=== PATIENT | female | born 1990 | race Caucasian/White ===

== ENCOUNTER 2018-12-25 08:43 | Inpatient (IN) | payer OTHER ==
[2018-12-25] MEDS: Lactated Ringer's 1,000 ML IV SCH (10:00)
[2018-12-25 10:03] VITALS: BMI 27.1
[2018-12-25 10:21] LABS: BASO % 0.4 % (0.0-2.0); EOS # 0.1 K/uL (0.0-0.7); EOS % 0.6 % (0.0-4.0); HEMOGLOBIN 7.6 g/dL (11.0-16.0); LYMPH # 1.8 K/uL (1.0-4.3); MEAN CELL VOLUME 68.5 fL (81.0-99.0); MEAN CORPUSCULAR HGB CONC 30.7 g/dL (33.0-37.0); MEAN PLATELET VOLUME 8.3 fL (7.2-11.7); MONO # 0.5 K/uL (0.0-0.8); MONO % 4.2 % (0.0-10.0); NEUT # 8.8 K/uL (1.8-7.0); NEUT % 78.8 % (50.0-75.0); NRBC % 0.1 % (0.0-2.0); RBC 3.64 Mil/uL (3.80-5.20); RED CELL DISTRIBUTION WIDTH 16.1 % (11.5-14.5); WHITE BLOOD COUNT 11.2 K/uL (4.8-10.8)
[2018-12-25 10:25] LABS: SQUAMOUS EPITHIAL 1 /hpf (0-5); URINE BACTERIA RARE (<OCC); URINE BILIRUBIN NEGATIVE (NEGATIVE); URINE CLARITY Clear (Clear); URINE COLOR Straw (YELLOW); URINE GLUCOSE (UA) NORMAL (Normal); URINE LEUKOCYTE ESTERASE 3+ Leu/uL (Negative); URINE PROTEIN NEGATIVE (NEGATIVE); URINE UROBILINOGEN NORMAL mg/dL (0.2-1.0)
[2018-12-25 10:26] LABS: URINE BLOOD 1+ (NEGATIVE)
[2018-12-25 10:34] LABS: ALB/GLOB RATIO 1.2 (1.0-2.1); ALBUMIN 3.4 g/dL (3.5-5.0); ALT/SGPT 16 U/L (9-52); AST/SGOT 35 U/L (14-36); BLOOD UREA NITROGEN 7 mg/dL (7-17); CALCIUM 8.7 mg/dl (8.6-10.4); GFR NON-AFRICAN AMERICAN > 60
[2018-12-25] MEDS ORDERED: Oxytocin 30 UNIT 30 UNITS/500 ML BAG IV SCH (11:45)
--- NOTE | 2018-12-25 13:43 | OBHP ---
Datetime: 12/25/2018 09:56 IP Adm Impression: Term, intrauterine IP Chief Complaint Other: LURDES 0 on BPP IP Admit Plan: Admit to unit Admit Comment, IP Provider: Patient is a 28 year old primagravid female at 40w0d by LMP of 03/20/18 an d MARYLOU 12/25/18 was sent in by her OB Dr. Angelic Flores for low LURDES on BPP. She started having contractions ar ound 8pm yesterday lasting less than a minute and about 30 minutes apart. They are still less than a minute long abuot 12-15 minutes apart. Her mucus plug dissolved _3days ago; she is still having VD fr om that. She denies ROM, VB, endorses +FM. Denies pain at this time. d Issues: - Anemia - beta thalassemia minor OB Hx: 1. Current [employer] Hx: LMP 03/20/18 [place]: 16 x regular x 4 days Last Pap was during first trimester Denies history or fibroids, cysts, HPV Allergies: NKDA Medications: PNV, Folate daily, Feosol po BID Medical Hx: Denies Surgical Hx: Denies Social Hx: Denies tobacco, alcohol, drug use Fam Hx: Denies, parents still alive PE: see above A/P: This is a 28 year old G1 @ 40 wks IOL for oligohydrmainos - Admit to unit - CEFM and TOCO - Admission labs: CBC, CMP, UA - LR @ 125 - TC for likely transfusion - Pitocin for augmentation - GBS neg, no antibiotics at this time - third trimester labs reviewed: RPR, Hep, GC/CH, Rubella, HIV neg - Anesthesia on consult for epidural if patient desires - anticipate vaginal delivery - plan discussed with Dr. Law pt seen and examiend rpeorat pain increasing intensety adn freuqency 2 min 7/10, deisre pian medic ation. Pt consented on possible blodo transfsion, r/b/a/i iol vs pltcs dw paietn pt reexamiend /-3 VTX plan pitocin IOL pain mangment type adn ramandeep Ba PGY-1 FHR - Baseline A Provider: 160 Comments, ACOG Physical Exam: Gen: NAD, AAOx3 HEENT: PERRLA, EOMI Cardio: RRR, +s1,+s2, no murmurs, gallops, rubs Resp: Normal breathing pattern, CTAB, no wheezing, rhonchi, rales GI: normal bowel sounds, soft, nontender abd, fundal height _39cm, : serous vaginal discharge present, no bleeding Ext: +5/5 muscle strength in the upper and lower ext b/l, pulses present (radial, PT) Nitrazine Provider: Negative IP Hx Assessment: The History has been Reviewed and is Current EGA AdmitDate IP: 40.0 IP Chief Complaint: Uterine contractions; Other NICHD Variability Prov Fetus A: Marked >25bpm NICHD Accel Fetus A IP Provider: 10X10 FHR Category Provider Fetus A: Category I NICHD Decel Fetus A IP Provider: Variable Dilatation, Provider: 1-2 Effacement, Provider: 50% Station, Provider: -3
[2018-12-25] MEDS ORDERED: Oxytocin 20 units in LR 0 ML IV ONE (13:52)
--- NOTE | 2018-12-25 14:00 | OBHP ---
Datetime: 12/25/2018 13:54 IP Adm Impression: Term, intrauterine IP Admit Plan: Admit to unit Admit Comment, IP Provider: pt seen adn examined, s/p d]elceration, and now rpeorting some lof, beatris r, no vb, +FM VS see above VE: /-3 VTX EFM: 160/mod rodolfo decerl down to 65pbpm x 2 min with spotnean recomver with decl down to 100bpm_ x 1min with spontaneous return tob aseline TOCO: q 5 min a/p @ 40 wks IOL for oligohydramions Now Cat I, hydration left latera, oxygen currently Cat I will dc pitcon if cat II pt cousle don r/b/a/i of continue IOL Vs PLTCS blood transfuion consent obtained pain magnetn Pelvic Type - PN: Adequate Extremities - PN: Normal Abdomen - PN: Normal Back - PN: Normal Breast - PN: Normal Lungs - PN: Normal Heart - PN: Normal Thyroid - PN: Normal Neurologic - PN: Normal HEENT - PN: Normal General - PN: Normal FHR - Baseline A Provider: 160 Contraction Comments Provider: 5 min Gestation - Est Wks by US: 40.0 IP Hx Assessment: The History has been Reviewed and is Current EGA AdmitDate IP: 40.0 Vital Signs Provider: Reviewed; Within Normal Limits IP Chief Complaint: Uterine contractions; Suspected ruptured membranes NICHD Variability Prov Fetus A: Moderate 6-25bpm Dilatation, Provider: 1 Effacement, Provider: 50 Station, Provider: -3 Genitourinary Exam: Normal DTRs - PN: Normal
[2018-12-25] MEDS ORDERED: cefOXitin IV 2 gm in Dextrose 2 GM/50 ML BAG IVPB ONE (16:14)
[2018-12-25] MEDS ORDERED: Lactated Ringer's 1,000 ML IV ONE (16:14)
[2018-12-25] MEDS ORDERED: Sodium Citrate/Citric Acid 15 ml Sol ONE ×2 (16:14→16:15)
[2018-12-25] MEDS ORDERED: Sodium Citrate/Citric Acid 15 ml Sol PO ONE (16:14)
[2018-12-25] MEDS ORDERED: Oxytocin 20 units in LR 2,000 ML IV ONE (16:16)
[2018-12-25] MEDS ORDERED: Morphine 1 mg/ml preservative-free Inj(Duramorph) ONE (17:10)
--- NOTE | 2018-12-25 17:11 | OBPN ---
Datetime: 12/25/2018 17:05 IP Informed Consent Obtain: Section Delivery Contraction Comments Provider: q 5min Vital Signs Provider: Reviewed Datetime: 12/25/2018 16:30 IP Progress Impression: Non-reassuring heart rate IP Procedures: Sterile Vag Exam IP Progress Plan: Induction FHR - Baseline A Provider: 150 Gestation - Est Wks by US: 40.0 Presentation-Admit: Vertex IP Progress Note Comment: Pt seen and examined, per Dr. Flores's request + Deep variables with recovery to baseline VA/Afebrile Admitted for IOL secondary to anhydramnios ? SROM NRFHT's Discussed with Dr. Flores and she is on her way to perform a C/S IV Hydration ordered and Anesthesia and OR aware NICHD Accel Fetus A IP Provider: 10X10 FHR Category Provider Fetus A: Category II NICHD Variability Prov Fetus A: Moderate 6-25bpm Dilatation, Provider: 2 Effacement, Provider: 70 Station, Provider: -3 NICHD Decel Fetus A IP Provider: Variable Datetime: 12/25/2018 09:56 Nitrazine Provider: Negative
[2018-12-25] MEDS ORDERED: Oxytocin 10 Units/ml Inj ONE (17:19)
--- NOTE | 2018-12-25 18:11 | OBDS ---
DELIVERY PERSONNEL Delivery Doctor: musa Metcalf Nurse: Audra Steiner [facility] Mortician: bonnie Anesthesiologist: khushbu Resident: dr menchaca MATERNAL INFORMATION Delivery Anesthesia: Spinal Provider Comments: live male ifnant cephailc presnetnatin, loose ncuhal x 1, agpasr 9,9 ebl 800ml, n ormal appearing uteurs, tubes and ovaries b/l pediatiricn presnt for delivery weight of 6lbs no cmplicaotns LABOR SUMMARY EDC: 12/25/2018 00:00 No. Babies in Womb: 1 LABOR INFORMATION Group B Beta Strep: Negative STAGES OF LABOR Stage 3 hrs: 0 Stage 3 min: 1 BABY A INFORMATION Delivery Date/Time: 12/25/2018 17:38 Method of Delivery: Born in Route : No : N/A Forceps: N/A Vacuum Extraction: N/A Shoulder Dystocia : No SHOULDER DYSTOCIA BABY A Delivery Date/Time: 12/25/2018 17:38 PRESENTATION/POSITION BABY A Presentation: Cephalic Cephalic Presentation: Vertex Vertex Position: Left Occipital Anterior Breech Presentation: N/A PLACENTA INFORMATION BABY A Placenta Delivery Time : 12/25/2018 17:39 Placenta Method of Delivery: Spontaneous Placenta Status: Delivered SCORES BABY A Heart Rate 1 min: >100 bpm Resp Effort 1 min: Good Cry Reflex Irritability 1 min: Cough or Sneeze or Pulls Away Muscle Tone 1 min: Active Motion Color 1 min: Body [place], Extremities Blue Resuscitation Effort 1 min: N/A SCORE 1 MIN: 9 Heart Rate 5 min: >100 bpm Resp Effort 5 min: Good Cry Reflex Irritability 5 min: Cough or Sneeze or Pulls Away Muscle Tone 5 min: Active Motion Color 5 min: Body [place], Extremities Blue Resuscitation Effort 5 min: N/A SCORE 5 MIN: 9 INFANT INFORMATION BABY A Gestational Age at Delivery: 40.0 Gestational Status: Term Infant Outcome : Liveborn Condition : Stable Sex: Male IDENTIFICATION/MEDS BABY A ID Band Number: [id number] ID Band Location: Right Leg; Right Arm Sensor Applied: Yes Sensor Number: [id number] Sensor Location : Cord Clamp Vitamin K Given : Not Given Erythromycin Given: Not Given WEIGHT/LENGTH BABY A Birthweight (gms): 2710 Weight (lb): 6 Weight (oz): 0 Length Inches: 20.00 Length cms: 50.8 CORD INFORMATION BABY A No. Cord Vessels: 3 Nuchal Cord : N/A Suction: Mouth; Nose
[2018-12-25] MEDS ORDERED: Oxycodone/Acetaminophen 5/325 mg Tab PO PRN (18:13)
[2018-12-25] MEDS: Simethicone 80 mg Chewtab PO SCH (22:00)
[2018-12-25 22:30] LABS: BASO # 0.1 K/uL (0.0-0.2); BASO % 0.4 % (0.0-2.0); EOS % 0.1 % (0.0-4.0); HEMOGLOBIN 8.1 g/dL (11.0-16.0); LYMPH # 1.2 K/uL (1.0-4.3); LYMPH % 7.6 % (20.0-40.0); MEAN CORPUSCULAR HEMOGLOBIN 22.8 pg (27.0-31.0); MEAN CORPUSCULAR HGB CONC 31.9 g/dL (33.0-37.0); MEAN PLATELET VOLUME 8.7 fL (7.2-11.7); MONO # 0.5 K/uL (0.0-0.8); MONO % 3.4 % (0.0-10.0); NEUT # 14.1 K/uL (1.8-7.0); NEUT % 88.5 % (50.0-75.0); NRBC % 0.1 % (0.0-2.0); PLATELET COUNT 255 K/uL (130-400); RBC 3.56 Mil/uL (3.80-5.20); RED CELL DISTRIBUTION WIDTH 20.4 % (11.5-14.5); WHITE BLOOD COUNT 15.9 K/uL (4.8-10.8)
[2018-12-25 22:41] LABS: MEAN CELL VOLUME 71.6 fL (81.0-99.0)
[2018-12-25 23:13] LABS: BANDS 8 % (0-2); LYMPHOCYTE 5 % (20-40); MONOCYTE 1 % (0-10); NEUTROPHIL 86 % (50-75); TOTAL CELLS COUNTED 100
[2018-12-25 23:14] LABS: ACANTHOCYTES SLIGHT; ANISOCYTOSIS SLIGHT; HYPOCHROMIC SLIGHT; MICROCYTOSIS SLIGHT; POIKILOCYTOSIS SLIGHT; TARGET CELLS SLIGHT; TEARDROP CELLS SLIGHT
[2018-12-25 23:15] LABS: PLATELET ESTIMATE NORMAL (NORMAL)
[2018-12-26] MEDS: Lactated Ringer's 1,000 ML IV SCH (03:55)
[2018-12-26 08:10] LABS: HEMOGLOBIN 7.9 g/dL (11.0-16.0); MEAN CELL VOLUME 71.7 fL (81.0-99.0); MEAN CORPUSCULAR HEMOGLOBIN 23.2 pg (27.0-31.0); MEAN CORPUSCULAR HGB CONC 32.3 g/dL (33.0-37.0); MEAN PLATELET VOLUME 8.8 fL (7.2-11.7); RBC 3.42 Mil/uL (3.80-5.20); RED CELL DISTRIBUTION WIDTH 20.3 % (11.5-14.5); WHITE BLOOD COUNT 15.3 K/uL (4.8-10.8)
[2018-12-26] MEDS: Prenatal Multivit/Folic Acid/Iron Tab PO SCH (09:54)
[2018-12-26] MEDS: Simethicone 80 mg Chewtab PO SCH ×4 (09:54→21:51)
--- NOTE | 2018-12-26 19:58 | OBPPN ---
Datetime: 12/26/2018 19:51 PP Pain Prov: Abnormal PP Nausea Prov: Denies PP Flatus Prov: Yes PP BM Prov: No PP Breasts Prov: Normal PP Heart Prov: Normal PP Lungs Prov: Normal PP Abdomen/Uterus Prov: Normal PP Lochia Prov: Normal PP Vulva/Perineum Prov: Normal PP CVA Tenderness Prov: Normal PP Extremities Prov: Normal PP C/S Incision Prov: Normal PP Progress Prov: Normal PP Impression Prov: Endometritis PP Plan Prov: Continue present management; Antibiotic therapy PP Progress Note Prov: pt seen adn examiend reports shivering starting early evening. pt rperots gisela n when walking to the bathroom oer hte incsion. pt deneis any fever, nause, ovmiting, cps, ob, bowel ro bladder compliatns VS SEe above PE: GEN: NAD, AAO x 3, appers tired RESP: Ctab/l CVS: RRR, +S1/S2 ABD: soft, TTP over uteurs, fundal tendnerss, no guaridng no reboudn tendners, no rgdity, +BS Incisin: C/D/I VE: minla lochai, no fuls smelling EXT; negative nancy's sign, a/p s/p PLTCS POD #1 with endoemetiris -antibiocs; triples -am cbc, cmp -regular diet -pain mangment -incenvie spiromter -abdominal binder -d/c vogel Vital Signs Provider PP: Reviewed
[2018-12-26] MEDS: AMPicillin 2 GM in Sodium Chloride 100 ML IVPB SCH (23:06)
[2018-12-27] MEDS: AMPicillin 2 GM in Sodium Chloride 100 ML IVPB SCH ×4 (03:46→22:44)
[2018-12-27 07:39] LABS: BASO % 0.3 % (0.0-2.0); EOS % 0.2 % (0.0-4.0); HEMOGLOBIN 6.8 g/dL (11.0-16.0); LYMPH # 1.2 K/uL (1.0-4.3); LYMPH % 10.4 % (20.0-40.0); MEAN CELL VOLUME 71.5 fL (81.0-99.0); MEAN CORPUSCULAR HEMOGLOBIN 23.6 pg (27.0-31.0); MEAN PLATELET VOLUME 7.9 fL (7.2-11.7); MONO # 0.6 K/uL (0.0-0.8); MONO % 4.8 % (0.0-10.0); NEUT # 9.9 K/uL (1.8-7.0); NEUT % 84.3 % (50.0-75.0); NRBC % 0.1 % (0.0-2.0); RBC 2.9 Mil/uL (3.80-5.20); RED CELL DISTRIBUTION WIDTH 19.7 % (11.5-14.5); WHITE BLOOD COUNT 11.8 K/uL (4.8-10.8)
[2018-12-27 08:04] LABS: ALB/GLOB RATIO 0.9 (1.0-2.1); ALBUMIN 2.5 g/dL (3.5-5.0); ALT/SGPT 21 U/L (9-52); AST/SGOT 41 U/L (14-36); BLOOD UREA NITROGEN 5 mg/dL (7-17); CALCIUM 7.9 mg/dl (8.6-10.4); GFR NON-AFRICAN AMERICAN > 60
--- NOTE | 2018-12-27 09:43 | OBPPN ---
Datetime: 12/27/2018 08:01 PP Pain Prov: Within normal limits PP Nausea Prov: Denies PP Flatus Prov: Yes PP BM Prov: Yes PP Breasts Prov: Normal PP Heart Prov: Normal PP Lungs Prov: Normal PP Abdomen/Uterus Prov: Normal PP Lochia Prov: Normal PP Vulva/Perineum Prov: Normal PP CVA Tenderness Prov: Normal PP Extremities Prov: Normal PP C/S Incision Prov: Normal PP Progress Prov: Normal PP Comments Phys Exam Prov: Gen: NAD, AAOx3 HEENT: EOMI, PERRLA Cardio: RRR, +s1, +s2, no murmurs, gallops, rubs Resp: normal breathing pattern, CTAB, no wheezing, rhonchi, rales Breat; non engorged b/l, on tender GI: guarding, tenderness to palpation in all 4 quadrants, fundal height 2 finger breath below the umbilicus, improved, no guarding, no reboud tndnere, no rigidity, +BS Ext: +5/5 muscle strength in the upper and lower extremities b/l PP Impression Prov: Normal progression; Endometritis; Pain PP Plan Prov: Continue present management; Antibiotic therapy PP Progress Note Prov: Patient was seen and examined today at bedside in no acute distress. She is n o longer shivering nor having chills. Patient tolerating regular diet. She's not having n/v and is fallon ving flatus and BM. Pt reprots pain is better contorlled then yesterday. Pt reprots feeling tired, de nis any cp, sob, dizzyness. She's ambulating in the room and using the incentive spirometer. pt rpero ts passign flatus. VS see above Pe see above A/P: s/p PLTCS POD #2 with endometritis -antibiotics; triples -am cbc, cmp -regular diet -pain management -incentive spirometer -abdominal binder -encourage ambulation Bernadette Ba PGY-1 agree with above pt seen adn exmined pain mangemnt repeat cbc hb <7 pt offered blodotranfsion, consent triple antibocs enoaurge ambaiton/breast feeding am labs IP PP Procedures: None Vital Signs Provider PP: Reviewed Vital Signs Provider Details PP: Tmax 99.3
[2018-12-27] MEDS: Simethicone 80 mg Chewtab PO SCH ×4 (10:04→21:25)
[2018-12-27] MEDS: Prenatal Multivit/Folic Acid/Iron Tab PO SCH (10:05)
[2018-12-27] MEDS: Oxycodone/Acetaminophen 5/325 mg Tab PO PRN (14:18)
[2018-12-27] MEDS ORDERED: Potassium Chloride 20 mEq ER Tab PO ONE ×2 (15:28→18:30)
[2018-12-27 16:48] VITALS: O2SAT 98
[2018-12-28] MEDS: Oxycodone/Acetaminophen 5/325 mg Tab PO PRN ×2 (00:22→09:37)
--- NOTE | 2018-12-28 01:47 | OP ---
PROCEDURE DATE: 12/25/2018 PREOPERATIVE DIAGNOSES: Anhydramnios, nonreassuring heart tracing, remote from delivery. POSTOPERATIVE DIAGNOSES: Anhydramnios, nonreassuring heart tracing, remote from delivery. PROCEDURE: Primary low transverse section. ANESTHESIA: Combined spinal epidural. ESTIMATED BLOOD LOSS: 800 mL. OPERATIVE FINDINGS: Live male , cephalic presentation. Apgars 9 and 9. Normal-appearing uterus, tubes, and ovaries bilaterally. Mold Parter present for the delivery. Dr. Mathew Cohn, surgical dental assistant, was present for the entire case, essential in gaining entry, retraction, exposure, helping to hold the bladder blade, closing all layers, and was present for the entire case. SPECIMEN SENT TO PATHOLOGY: Placenta. COMPLICATIONS: None. DESCRIPTION OF PROCEDURE: The patient was taken to the operating room where she was given anesthesia. Once it was found to be adequate, the patient was placed on the operating table in the dorsal supine position. The patient was then prepped and draped in the usual sterile fashion. A time-out confirmed correct patient and correct procedure. Bimanual exam was performed with the above-mentioned findings. Pfannenstiel skin incision was made with a scalpel, carried down to the underlying fascia with the Bovie. The fascia was incised in the midline and incision was extended laterally with the Bovie. Inferior aspect of the fascial incision was grasped with Allis and Luis clamps and the underlying rectus muscle was dissected off bluntly. Attention was then turned to the superior aspect, which in a similar fashion was grasped with Allis and Luis clamps, and the underlying rectus muscles were dissected off bluntly. The rectus muscles were then bluntly in the midline. The peritoneum was identified and entered in clear space. The incision was extended laterally and superiorly until there was good visualization of the bladder. The lower end of the [place] was then reinserted. The vesicouterine peritoneum was incised with Metzenbaum scissors. The bladder flap was created digitally. The lower uterine segment was incised in a transverse fashion. The uterine incision was extended laterally bluntly. Surgeon's hand entered the uterine cavity. The infant's head was delivered atraumatically followed by delivery of the shoulders, followed by delivery of the body. Both oral and nasal passages of the baby were bulb suctioned. The umbilical cord was clamped and cut. The baby was handed off to the awaiting level vial marker. Cord blood and cord gases were collected and sent x2. The placenta was then delivered manually. The uterus was exteriorized of all clots and debris. The uterus was then returned to the abdomen. Pericolic gutters were cleared of all clots and debris. There was good hemostasis noted at the uterine incision site. The peritoneum was reapproximated with a 2-0 chromic in a running continuous fashion. The rectus was reapproximated with 2-0 chromic in an interrupted manner. The fascia was reapproximated and closed with 0 Vicryl in a running continuous fashion. The subcutaneous space was closed with a 2-0 plain in an interrupted manner, and the skin was reapproximated with a 4-0 Monocryl in a running subcuticular fashion. At the end of the procedure, all needle, sponge and instrument counts were noted to be correct x2. The patient tolerated the procedure well and was transferred to the recovery room in stable condition. Tahmina Flores MD
[2018-12-28] MEDS: AMPicillin 2 GM in Sodium Chloride 100 ML IVPB SCH ×2 (04:12→09:17)
[2018-12-28 07:46] LABS: BASO % 0.4 % (0.0-2.0); EOS # 0.1 K/uL (0.0-0.7); EOS % 0.9 % (0.0-4.0); HEMOGLOBIN 8.5 g/dL (11.0-16.0); LYMPH # 1.5 K/uL (1.0-4.3); LYMPH % 14.2 % (20.0-40.0); MEAN CORPUSCULAR HEMOGLOBIN 24.2 pg (27.0-31.0); MEAN CORPUSCULAR HGB CONC 32.7 g/dL (33.0-37.0); MEAN PLATELET VOLUME 8.1 fL (7.2-11.7); MONO # 0.5 K/uL (0.0-0.8); MONO % 4.7 % (0.0-10.0); NEUT # 8.4 K/uL (1.8-7.0); NEUT % 79.8 % (50.0-75.0); NRBC % 0.2 % (0.0-2.0); RBC 3.51 Mil/uL (3.80-5.20); RED CELL DISTRIBUTION WIDTH 21.9 % (11.5-14.5); WHITE BLOOD COUNT 10.6 K/uL (4.8-10.8)
[2018-12-28 08:06] LABS: ALB/GLOB RATIO 1.1 (1.0-2.1); ALT/SGPT 20 U/L (9-52); AST/SGOT 42 U/L (14-36); BLOOD UREA NITROGEN 5 mg/dL (7-17); CALCIUM 8.5 mg/dl (8.6-10.4); GFR NON-AFRICAN AMERICAN > 60
[2018-12-28 08:09] VITALS: BP 110/70; PULSE 96; RESP 18; TEMP 97.8
[2018-12-28] MEDS: Prenatal Multivit/Folic Acid/Iron Tab PO SCH (09:20)
[2018-12-28] MEDS: Simethicone 80 mg Chewtab PO SCH ×2 (09:21→14:33)
--- NOTE | 2018-12-28 09:36 | OBPPN ---
Datetime: 12/28/2018 09:33 PP Pain Prov: Within normal limits PP Nausea Prov: Denies PP Flatus Prov: Yes PP BM Prov: No PP Breasts Prov: Normal PP Heart Prov: Normal PP Lungs Prov: Normal PP Abdomen/Uterus Prov: Normal PP Lochia Prov: Normal PP Vulva/Perineum Prov: Normal PP CVA Tenderness Prov: Normal PP Extremities Prov: Normal PP C/S Incision Prov: Normal PP Progress Prov: Normal PP Impression Prov: Normal progression PP Plan Prov: Continue present management PP Progress Note Prov: pt seen adn examiend and rperots pain contorlled . pt ambuaing , voiding, not passign fluats VS PE: see above a/p s/p PLTCS POD #3 dogn well dc home rot 1 week preuaiotn ginve Vital Signs Provider PP: Reviewed; Within Normal Limits
--- NOTE | 2018-12-28 09:36 | OBDCSUM ---
Datetime: 12/28/2018 09:34 Discharged to, Provider: Home Follow up at, Provider: Dr Flores Disch Instr Activity: Normal activity Disch Instr Diet: Regular Discharge Instructions, Provider: Routine instructions given Discharge Diagnosis, Provider: Term Delivered Discharge Time: 12/28/2018 09:34 Disch Referrals: None Contraception discussed, Prov: Yes Disch Activity Restrictions: No sexual activity; Nothing in vagina - [place], tampons, douche Discharge Comment, Provider: precautions Contraception after Delivery: Not Planning to Use
== END 2018-12-28 17:00 | disposition home or self-care (01) | DRG 786 ==
LOC: C.EROB 08:43 → C.4D 11:13 → C.4M 22:00
PROVIDERS: ADMIT Obstetrics & Gynecology; ATTEND Obstetrics & Gynecology
PROC: 10D00Z1 Extraction of Products of Conception, Low, Open Approach (ICD-10-PCS; principal; 2018-12-25)
DX: O76 Abnormality in fetal heart rate and rhythm complicating labor and delivery (principal); O75.3 Other infection during labor; O41.03X0 Oligohydramnios, third trimester, not applicable or unspecified; Z3A.40 40 weeks gestation of pregnancy; Z37.0 Single live birth; D56.3 Thalassemia minor; O75.89 Other specified complications of labor and delivery; O69.81X0 Labor and delivery complicated by cord around neck, without compression, not applicable or unspecified